=== PATIENT | female | born 1950 | race Caucasian/White ===

== ENCOUNTER 2018-09-22 09:47 | Emergency (ER) | payer BC ==
--- NOTE | 2018-09-22 10:15 | Emergency Department Record ---
History of Present Illness - General Chief Complaint: Abdominal Pain Stated Complaint: POSS HERNIA Time Seen by Provider: 09/22/18 10:02 Source: Patient Mode of Arrival: Ambulatory Limitations: No limitations - History of Present Illness Initial Comments: The patient is here due to having mild RUQ AP for about a month. It is worse with bending and flexion her abdominal wall. She also has noticed swelling in the area and believes she has an abdominal wall hernia. There has been no nausea , vomiting, diarrhea, fever, or CP. The patient has had multiple abdominal surgeries including gastric bypass and is scheduled for a Urological mesh procedure in the near future. MD Complaint: Abdominal pain Onset/Timin -: Month(s) Location: RUQ Radiation: None Migration to: No migration Severity: Mild Severity scale (1-10): 2 Quality: Aching Consistency: Constant Improves With: Nothing Worsens With: Nothing Associated Symptoms: Denies other symptoms - Related Data Patient : No Allergies Allergy/AdvReac Type Severity Reaction Status Date / Time chondroitin sulfate A Allergy Severe ANAPHYLAXIS Verified 09/22/18 09:57 dicyclomine HCl [From Bentyl] Allergy Severe BEHAVIORAL Verified 09/22/18 09:57 CHANGES fesoterodine fumarate Allergy Severe BEHAVIORAL Verified 09/22/18 09:57 [From Toviaz] CHANGES Iodinated Contrast- Oral and Allergy Severe ANAPHYLAXIS Verified 09/22/18 09:57 IV Dye latex Allergy Severe DIFFICULTY Verified 09/22/18 09:57 BREATHING NSAIDS (Non-Steroidal Allergy Severe HIVES Verified 09/22/18 09:57 Anti-Inflamma shellfish derived Allergy Severe ANAPHYLAXIS Verified 09/22/18 09:57 Sulfa (Sulfonamide Allergy Intermediate RASH Verified 09/22/18 09:57 Antibiotics) oxybutynin chloride AdvReac diarrhea Verified 09/22/18 09:57 [From Ditropan] Topical [place] Allergy Intermediate RASH Uncoded 05/29/16 11:40 Travel Screening - Travel/Exposure Within Last 30 Days Have you traveled within the last 30 days?: No Review of Systems Constitutional: Denies: Chills, Fever Eyes: Denies: Eye discharge ENT: Denies: Congestion Respiratory: Denies: Cough, Dyspnea Cardiovascular: Denies: Chest pain Endocrine: Denies: Fatigue Gastrointestinal: Reports: Abdominal pain. 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) Comment:: aortic stenosis-no problem - NEURO Hx Neuro Disorders: No - GI Hx GI Disorders: Yes Hx Wt Loss/Wt Gain: Yes - Hx Genitourinary Disorders: Yes Hx Bladder Problem: Yes Hx Kidney Stones: Yes Hx UTI: Yes - ENDOCRINE Hx Endocrine Disorders: No - MUSCULOSKELETAL Hx Musculoskeletal Disorders: Yes Hx Arthritis: Yes - PSYCH Hx Psych Problems: No - HEMATOLOGY/ONCOLOGY Hx Hematology/Oncology Disorders: Yes Hx Bruising: Yes Family Medical History Any Significant Family History?: Yes Hx Cancer: Father *Cancer Comment: father-colon, brother-anal cancer Physical Exam - General General Appearance: Alert, Oriented x3, Cooperative, No acute distress - Head Head exam: Atraumatic, Normocephalic, Normal inspection - Eye Eye exam: Normal appearance, PERRL - Neck Neck exam: Normal inspection, Full ROM. negative: Tenderness - Respiratory Respiratory exam: Normal lung sounds bilaterally. negative: Respiratory distress - Cardiovascular Cardiovascular Exam: Regular rate, Normal rhythm - GI/Abdominal GI/Abdominal exam: Soft, Normal bowel sounds, Tenderness (There is very mild RUQ tenderness with no masses or bulging appreciated.). negative: Guarding, Pulsatile mass, Rebound, Rigid - Extremities Extremities exam: Normal inspection, Full ROM, Normal capillary refill. negative: Tenderness - Neurological Neurological exam: Alert, Normal gait. negative: Abnormal gait, Motor sensory deficit Course Vital Signs 09/22/18 09:53 Temperature 98.4 F Pulse Rate 75 Respiratory 18 Rate Blood Pressure 160/100 Pulse Ox 96 - Reevaluation(s) Reevaluation #1: The patient is doing very well at this time. She is resting comfortably and denies any pain unless moving or bending. I did discuss the neg CT and lab work with her and the need for F/U with Dr. Giron. I also did discuss the case with Dr. Giron and he agrees with the plan to see in the [facility] next week. 09/22/18 11:30 Medical Decision Making - Data Complexity MDM Data: Labs Ordered and/or Reviewed, X-Ray Ordered and/or Reviewed - Lab Data Result diagrams: 09/22/18 10:15 09/22/18 10:15 - Radiology Data Radiology results: Report reviewed (Abd CT: Neg for acute changes. Neg for obvious hernia or mass RUQ.) Disposition Disposition: Discharge Clinical Impression: Abdominal pain in female Disposition: Home, Self-Care Condition: (2) Stable Instructions: Abdominal Pain (ED) Additional Instructions: Please continue your regular medicines and use Tylenol for pain. Please see Dr. Giron in the [facility]ty [facility] next week as planned. Return to the ER for any worsening pain, fever, or vomiting. Referrals: [facility] Specialty Clinics [Provider Group] Gregory Giron [DOCTOR OF OSTEOPATH] - Forms: Patient Portal Access Time of Disposition: 11:29 Quality - Quality Measures Quality Measures: N/A - Blood Pressure Screening View Details: Yes Does Patient Have Any of the Following: Active Dx of HTN Blood Pressure Classification: Pre-Hypertensive BP Reading Systolic Measurement: 158 Diastolic Measurement: 89 Screening for High Blood Pressure: Patient Exclusion, Hx of HTN [G9744]
[2018-09-22 10:22] LABS: BASO % 0.3 % (0-6); EOS % 0.4 % (0-6); HEMATOCRIT 44.2 % (35.0-47.0); HEMOGLOBIN 14.1 gm/dl (11.6-16.0); LYMPH % 32.3 % (16-45); MEAN CELL VOLUME 102.1 fl (81-97); MEAN CORPUSCULAR HEMOGLOBIN 32.6 pg (27-33); MEAN CORPUSCULAR HGB CONC 31.9 g/dl (32-36); MEAN PLATELET VOLUME 9.4 fl (7.4-10.4); PLATELET COUNT 237 K/uL (130-400); RED BLOOD COUNT 4.33 M/uL (3.80-5.40); RED CELL DISTRIBUTION WIDTH 13.3 % (11.5-14.5); WHITE BLOOD COUNT W/O DIFF 7.5 K/uL (4.2-12.2)
[2018-09-22 10:34] LABS: BLOOD UREA NITROGEN 13 mg/dL (8-23); CREATININE 0.7 mg/dL (0.5-0.9); EST GLOMERULAR FILTRATION RATE > 60 mL/min
[2018-09-22 10:35] LABS: TOTAL PROTEIN 6.8 g/dL (6.6-8.7)
[2018-09-22 10:37] LABS: GLUCOSE,RANDOM 121 mg/dL (74-109)
[2018-09-22 10:39] LABS: ALT/SGPT 24 U/L (<33); AST/SGOT 25 U/L (10.0-35.0)
[2018-09-22 10:40] LABS: ALBUMIN 3.9 g/dL (4.0-5.0); ALKALINE PHOSPHATASE 89 U/L (45-87); BILIRUBIN,DIRECT < 0.2 mg/dL (0-0.3); LIPASE 12 U/L (13-60)
--- NOTE | 2018-09-23 05:49 | CT SCAN REPORT ---
EXAM: NONCONTRAST CT OF THE ABDOMEN AND PELVIS HISTORY: RIGHT UPPER QUADRANT ABDOMINAL PAIN. TECHNIQUE: Noncontrast CT of the abdomen and pelvis was obtained. Comparison: Noncontrast CT of the abdomen and pelvis 09/05/09. FINDINGS: Noncalcified 3 mm right lung perifistular nodule near the right middle lobe, likely a small lymph node. Mild bilateral lower lobe atelectasis. Moderate hiatal hernia with associated gastric post surgical changes. Unremarkable noncontrast CT appearance of the liver, gallbladder, spleen, adrenal glands, and pancreas. A small surgical clip is noted anteriorly adjacent to the spleen. No hydronephrosis. Bilateral 1 mm intrarenal calculi. No ureteral calculi are seen. Mild colonic diverticulosis without evidence of acute diverticulitis. No focal colonic thickening or inflammatory change. The stomach and small bowel are nondilated. No free air or free fluid. Unremarkable appearance of the urinary bladder. The uterus appears absent. The abdominal aorta is mildly calcified and nondilated. No acute osseous findings. IMPRESSION: 1. NO DEFINITE ACUTE FINDINGS IN THE ABDOMEN OR PELVIS. 2. BILATERAL NONOBSTRUCTING INTRARENAL CALCULI. 3. MODERATE SIZED HIATAL HERNIA, INCREASED IN SIZE SINCE [address] POST SURGICAL CHANGES OF THE STOMACH. 4. MILD COLONIC DIVERTICULOSIS WITHOUT EVIDENCE OF ACUTE DIVERTICULITIS. 5. NOT DESCRIBED ABOVE, THERE IS A SMALL LEFT SIDED LUMBAR HERNIA CONTAINING ONLY FAT WHICH IS SIMILAR IN APPEARANCE SINCE 2009. JOB NUMBER: [id number] [facility]
== END 2018-09-22 11:42 | disposition home or self-care (01) ==
LOC: ER 09:47
DX: R10.11 Right upper quadrant pain (principal); I10 Essential (primary) hypertension; Z98.84 Bariatric surgery status
CPT/HCPCS: 74176; 80048; 80076; 83690; 85025; 99283; 99284

== ENCOUNTER 2019-03-08 11:58 | Emergency (ER) | payer BC ==
[2019-03-08] MEDS ORDERED: IPRATROPIUM/ALBUTEROL (0.5MG/3MG) NEB INH ONE (12:25)
[2019-03-08] MEDS ORDERED: ASPIRIN 81 MG CHEWABLE TABLET PO ONE (12:30)
[2019-03-08 12:43] LABS: ABSOLUTE NEUTROPHIL COUNT 3.87; BASO % 0.4 % (0-6); EOS % 2.8 % (0-6); GRAN % 53.7 % (47-80); HEMATOCRIT 39.3 % (35.0-47.0); HEMOGLOBIN 12.5 gm/dl (11.6-16.0); LYMPH % 32.8 % (16-45); MEAN CORPUSCULAR HEMOGLOBIN 31.2 pg (27-33); MEAN CORPUSCULAR HGB CONC 31.8 g/dl (32-36); MEAN PLATELET VOLUME 9.7 fl (7.4-10.4); MONO % 10.3 % (0-9); PLATELET COUNT 256 K/uL (130-400); RED BLOOD COUNT 4.01 M/uL (3.80-5.40); RED CELL DISTRIBUTION WIDTH 13.7 % (11.5-14.5); WHITE BLOOD COUNT W/O DIFF 7.2 K/uL (4.2-12.2)
[2019-03-08 12:48] LABS: BLOOD UREA NITROGEN 8 mg/dL (8-23); CREATININE 0.7 mg/dL (0.5-0.9); EST GLOMERULAR FILTRATION RATE > 60 mL/min
[2019-03-08 12:51] LABS: GLUCOSE,RANDOM 123 mg/dL (74-109)
[2019-03-08] MEDS ORDERED: CEFTRIAXONE SODIUM 2 GM in 0.9 % SODIUM CHLORIDE 100ML 100 ML IVPB ONE (14:07)
--- NOTE | 2019-03-08 14:12 | Emergency Department Record ---
History of Present Illness - General Chief Complaint: Difficulty Breathing Stated Complaint: DIFFICULTY BREATHING Time Seen by Provider: 03/08/19 12:29 Source: Patient, RN notes reviewed Mode of Arrival: Ambulatory - History of Present Illness Initial Comments: this morning patient got and sob and pain right chest wall and not her typical wheezing and she has asthma since a child ,never smoked. March 03 had umbilical hernia surgery with mesh insertion. PMH DVT from control pills at 17 years old. Patient states she is allergic to contrast from 30 years ago and she doesn' t recall her reaction and she is also allergic to shellfish and iodine where she needs an epipen shot. Onset/Timin -: Days(s) Severity: Moderate Severity scale (1-10): 4 Quality: Aching, Sharp Consistency: Constant, Intermittent Associated Symptoms: Denies other symptoms - Related Data Home Oxygen Therapy: No Home Medications Medication Instructions Recorded Confirmed Last Taken Cetirizine HCl [Zyrtec] 10 mg PO DAILY 03/08/19 03/08/19 1 Day Ago ~03/07/19 Tramadol HCl [Ultram] 50 mg PO Q6H 03/08/19 03/08/19 1 Day Ago ~03/07/19 Zoledronic Acid/Mannitol&Water 5 mg IV ASDIR 03/08/19 03/08/19 1 Day Ago [Reclast] ~03/07/19 Allergies Allergy/AdvReac Type Severity Reaction Status Date / Time chondroitin sulfate A Allergy Severe ANAPHYLAXIS Verified 03/08/19 12:12 dicyclomine HCl [From Bentyl] Allergy Severe BEHAVIORAL Verified 03/08/19 12:12 CHANGES fesoterodine fumarate Allergy Severe BEHAVIORAL Verified 03/08/19 12:12 [From Toviaz] CHANGES Iodinated Contrast- Oral and Allergy Severe ANAPHYLAXIS Verified 03/08/19 12:12 IV Dye latex Allergy Severe DIFFICULTY Verified 03/08/19 12:12 BREATHING NSAIDS (Non-Steroidal Allergy Severe HIVES Verified 03/08/19 12:12 Anti-Inflamma shellfish derived Allergy Severe ANAPHYLAXIS Verified 03/08/19 12:12 Sulfa (Sulfonamide Allergy Intermediate RASH Verified 03/08/19 12:12 Antibiotics) hydrocodone bitartrate AdvReac Mild headache Verified 03/08/19 12:12 [From [place]] oxybutynin chloride AdvReac diarrhea Verified 03/08/19 12:12 [From Ditropan] Topical Glen Allergy Intermediate RASH Uncoded 03/08/19 12:12 Travel Screening - Travel/Exposure Within Last 30 Days Have you traveled within the last 30 days?: No - Travel/Exposure Within Last Year Have you traveled outside the [place] in the last year?: No - Additonal Travel Details Have you been exposed to anyone with a communicable illness?: No - Travel Symptoms Symptom Screening: None Review of Systems Reviewed: No additional complaints except as noted below Constitutional: Reports: As per HPI. Denies: Chills, Fever, Malaise, Night sweats, Weakness, Weight change Eyes: Reports: As per HPI. Denies: Eye discharge, Eye pain, Photophobia, Vision change ENT: Reports: As per HPI. Denies: Congestion, Dental pain, Ear pain, Epistaxis, Hearing loss, Throat pain Respiratory: Reports: As per HPI. Denies: Cough, Dyspnea, Hemoptysis, Stridor, Wheezes Cardiovascular: Reports: As per HPI. Denies: Arrhythmia, Chest pain, Dyspnea on exertion, Edema, Murmurs, Orthopnea, Palpitations, Paroxysmal nocturnal dyspnea, Rheumatic Fever, Syncope Endocrine: Reports: As per HPI. Denies: Fatigue, Heat or cold intolerance, Polydipsia, Polyuria Gastrointestinal: Reports: As per HPI. Denies: Abdominal pain, Constipation, Diarrhea, Hematemesis, Hematochezia, Melena, Nausea, Vomiting Genitourinary: Reports: As per HPI. Denies: Abnormal menses, Discharge, Dyspareunia, Dysuria, Frequency, Hematuria, Incontinence, Retention, Urgency Musculoskeletal: Reports: As per HPI. Denies: Arthralgia, Back pain, Gout, Joint swelling, Myalgia, Neck pain Skin: Reports: As per HPI. Denies: Bruising, Change in color, Change in hair/nails, Lesions, Pruritus, Rash Neurological: Reports: As per HPI. Denies: Abnormal gait, Confusion, Headache, Numbness, Paresthesias, Seizure, Tingling, Tremors, Vertigo, Weakness Psychiatric: Reports: As per HPI. Denies: Anxiety, Auditory hallucinations, Depression, Homicidal thoughts, Suicidal thoughts, Visual hallucinations Hematological/Lymphatic: Reports: As per HPI. 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) Comment:: aortic stenosis-no problem - NEURO Hx Neuro Disorders: No - GI Hx GI Disorders: Yes Hx Wt Loss/Wt Gain: Yes - Hx Genitourinary Disorders: Yes Hx Bladder Problem: Yes Hx Kidney Stones: Yes Hx UTI: Yes - ENDOCRINE Hx Endocrine Disorders: No - MUSCULOSKELETAL Hx Musculoskeletal Disorders: Yes Hx Arthritis: Yes - PSYCH Hx Psych Problems: No - HEMATOLOGY/ONCOLOGY Hx Hematology/Oncology Disorders: Yes Hx Bruising: Yes Family Medical History Any Significant Family History?: Yes Hx Cancer: Father *Cancer Comment: father-colon, brother-anal cancer Physical Exam - General General Appearance: Alert, Oriented x3, Cooperative, No acute distress - Head Head exam: Normal inspection - Eye Eye exam: Normal appearance, PERRL Pupils: Normal accommodation - ENT ENT exam: Normal exam, Mucous membranes moist, Normal external ear exam, Normal orophraynx, TM's normal bilaterally Ear exam: Normal external inspection. negative: External canal tenderness Nasal Exam: Normal inspection. negative: Discharge, Sinus tenderness Mouth exam: Normal external inspection, Tongue normal Teeth exam: Normal inspection. negative: Dental caries Throat exam: Normal inspection. negative: Tonsillar erythema, Tonsillar exudate - Neck Neck exam: Normal inspection, Full ROM. negative: Tenderness - Respiratory Respiratory exam: Normal lung sounds bilaterally. negative: Respiratory distress - Cardiovascular Cardiovascular Exam: Regular rate, Normal rhythm, Normal heart sounds - GI/Abdominal GI/Abdominal exam: Soft, Normal bowel sounds. negative: Tenderness - Rectal Rectal exam: Deferred - exam: Deferred - Extremities Extremities exam: Normal inspection, Full ROM, Normal capillary refill. negative: Tenderness - Back Back exam: Reports: Normal inspection, Full ROM. Denies: Muscle spasm, Rash noted, Tenderness - Neurological Neurological exam: Alert, Normal gait, Oriented X3, Reflexes normal - Psychiatric Psychiatric exam: Normal affect, Normal mood - Skin Skin exam: Dry, Intact, Normal color, Warm Course Vital Signs 03/08/19 03/08/19 03/08/19 12:00 12:26 12:32 Temperature 98.0 F Pulse Rate 84 80 Pulse Rate [ Rug Dry Room Attendant ] Respiratory 18 16 Rate Blood Pressure 132/107 Blood Pressure [Left Arm] Pulse Ox 94 L 97 03/08/19 13:51 Temperature Pulse Rate Pulse Rate [ 75 Rug Dry Room Attendant ] Respiratory 18 Rate Blood Pressure Blood Pressure 137/83 [Left Arm] Pulse Ox 94 L - Reevaluation(s) Reevaluation #1: transferring to [facility] ED for v/q scan to rule out PE and patient hypoxic adn requiring 2 liters per minute and she has an infiltrate suble LLlobe on chest xray and will give rocephin 2 mg IV 03/08/19 14:37 Reevaluation #2: discussed case with Dr Rudolph at [facility] ED and will transfer for V/Q scan to rule out PE 03/08/19 14:40 Medical Decision Making - Data Complexity MDM Data: Labs Ordered and/or Reviewed (WBC 7,300 hg 12.5 ), X-Ray Ordered and/or Reviewed (chest xray bilateral pleural effusion and LLLobe infiltrate subtle, ), EKG Ordered and/or Reviewed (NSR, No acute changes) - Lab Data Result diagrams: 03/08/19 12:10 03/08/19 12:10 Lab Results 03/08/19 03/08/19 Range/Units 12:10 12:10 WBC 7.2 (4.2-12.2) K/uL RBC 4.01 (3.80-5.40) M/uL Hgb 12.5 (11.6-16.0) gm/dl Hct 39.3 (35.0-47.0) % MCV 98.0 H (81-97) fl MCH 31.2 (27-33) pg MCHC 31.8 L (32-36) g/dl RDW 13.7 (11.5-14.5) % Plt Count 256 (130-400) K/uL MPV 9.7 (7.4-10.4) fl Gran % 53.7 (47-80) % Lymphocytes % 32.8 (16-45) % Monocytes % 10.3 H (0-9) % Eosinophils % 2.8 (0-6) % Basophils % 0.4 (0-6) % Absolute Neutrophils 3.87 Sodium 139 (136-145) mmol/L Potassium 4.2 (3.4-4.5) mmol/L Chloride 97 L (98-107) mmol/L Carbon Dioxide 27.0 (22-29) mmol/L Anion Gap 15.0 (7-16) BUN 8 (8-23) mg/dL Creatinine 0.7 (0.5-0.9) mg/dL Estimated GFR > 60 mL/min Random Glucose 123 H (74-109) mg/dL Calcium 10.1 (8.8-10.2) mg/dL Troponin T < 0.010 (0-0.010) ng/mL Disposition Clinical Impression: Hypoxia, Right-sided chest pain, Infiltrate of left lung present on chest x- ray, Pleural effusion Dyspnea Qualifiers: Dyspnea type: shortness of breath Qualified Code(s): R06.02 - Shortness of breath Disposition: Acute Care Hospital Transfer Condition: (2) Stable Forms: Patient Portal Access Time of Disposition: 14:41 Quality - Quality Measures Quality Measures: N/A - Blood Pressure Screening Does Patient Have Any of the Following: No Blood Pressure Classification: Hypertensive Reading Systolic Measurement: 132 Diastolic Measurement: 107 Screening for High Blood Pressure: < Pre-Hypertensive BP, F/U Documented > [G8950] Pre-Hypertensive Follow-up Interventions: Referral to alternative/primary care provider.
== END 2019-03-08 15:26 | disposition short-term general hospital (02) ==
LOC: ER 11:58
DX: R09.02 Hypoxemia (principal); R91.8 Other nonspecific abnormal finding of lung field; R07.9 Chest pain, unspecified; Z86.718 Personal history of other venous thrombosis and embolism
CPT/HCPCS: 71046; 80048; 84484; 85025; 85730; 93005; 93010; 94640; 96365; 99285